=== PATIENT | male | born 1995 | race Two or more races ===

== ENCOUNTER → 2017-07-21 | Outpatient (CLI) | payer BC ==
[2017-06-14 11:00] VITALS: BP 111/72
--- NOTE | 2017-07-21 16:45 | KCIC ---
PA view of the chest Clinical indications: Positive TB reactor. COMPARISON: None available. Findings: Small bilateral granulomas are seen. No cavitary lesion is seen. No acute lung infiltrate or pleural effusion or pulmonary edema or lung mass or pneumothorax is seen. The heart size, pulmonary vasculature, mediastinum and both aston are unremarkable. Impression: No acute radiographic abnormality is seen. Specifically, there are no radiographic findings indicative of active tuberculous lung disease. Electronically signed by: Malcolm Greene MD (07/21/2017 4:42 PM) [facility] [place]
== END | disposition home or self-care (01) ==
LOC: KCIC 14:22
PROVIDERS: ATTEND Family Medicine
DX: R76.11 Nonspecific reaction to tuberculin skin test without active tuberculosis (principal); J84.10 Pulmonary fibrosis, unspecified
CPT/HCPCS: 71010